=== PATIENT | female | born 1960 | race Caucasian/White ===

== ENCOUNTER → 2017-04-16 | Outpatient (CLI) | payer BC, OTHER | LOC: RAD 04-02 13:39 | DX: Z12.31 Encounter for screening mammogram for malignant neoplasm of breast (principal) ==

== ENCOUNTER → 2018-05-11 | Outpatient (CLI) | payer BC, OTHER | LOC: RAD 01:07 | DX: Z12.31 Encounter for screening mammogram for malignant neoplasm of breast (principal) ==

== ENCOUNTER → 2019-05-26 | Outpatient (CLI) | payer BC, OTHER | LOC: RAD 08:46 | DX: Z12.31 Encounter for screening mammogram for malignant neoplasm of breast (principal) ==

== ENCOUNTER → 2019-06-07 | Outpatient (CLI) | payer BC, OTHER | LOC: ULTRA 07:43 | DX: R92.2 Inconclusive mammogram (principal) ==

== ENCOUNTER → 2019-11-02 | Outpatient (CLI) | payer BC, OTHER | LOC: RAD 09:29 | DX: N63.0 Unspecified lump in unspecified breast (principal) ==

== ENCOUNTER → 2020-04-24 | Outpatient (CLI) | payer BC, OTHER | LOC: SJCVCIMAG 09:08 | PROVIDERS: ATTEND Internal Medicine Cardiovascular Disease | DX: I10 Essential (primary) hypertension (principal); I25.10 Atherosclerotic heart disease of native coronary artery without angina pectoris; R06.00 Dyspnea, unspecified; E78.00 Pure hypercholesterolemia, unspecified; I35.0 Nonrheumatic aortic (valve) stenosis; Z95.2 Presence of prosthetic heart valve ==

== ENCOUNTER → 2020-06-05 | Outpatient (CLI) | payer BC, OTHER | LOC: BC 08:53 | PROVIDERS: ATTEND Obstetrics & Gynecology | DX: Z12.31 Encounter for screening mammogram for malignant neoplasm of breast (principal); N64.89 Other specified disorders of breast ==

== ENCOUNTER → 2021-06-11 | Outpatient (CLI) | payer BC, OTHER | LOC: BC 08:32 | PROVIDERS: ATTEND Obstetrics & Gynecology | DX: Z12.31 Encounter for screening mammogram for malignant neoplasm of breast (principal); N64.59 Other signs and symptoms in breast ==